=== PATIENT | male | born 1930 | race Caucasian/White ===

== ENCOUNTER 2016-09-21 11:36 | Inpatient (IN) | payer OTHER, MEDICAID ==
[~2016-09-21] VITALS: Ht 157.5 cm; Wt 63.0 kg
[~2016-09-21 11:36] MED LIST: FURO-150 PO; LISI-600 PO; PARI1CAP PO; PIOG15TA66 PO; SITA100T7 PO
[2016-09-21 13:42] VITALS: BP_SYST 139
[2016-09-21] MEDS ORDERED: MORPHINE 2 MG/ML INJ. SYRINGE IVP PRN (14:30)
[2016-09-21] MEDS ORDERED: ONDANSETRON HCL 4 MG/2 ML VIAL IVP PRN (14:30)
[2016-09-21] MEDS ORDERED: ACETAMINOPHEN 325 MG TABLET PO PRN (14:30)
[2016-09-21 14:44] LABS: BASOPHILS % (AUTO) 0.5 % (0.0-2.0); EOSINOPHILS # (AUTO) 0.1 K/uL (0.0-0.4); EOSINOPHILS % (AUTO) 0.8 % (0.0-4.0); HEMATOCRIT 35.9 % (36-54); HEMOGLOBIN 11.6 g/dL (14.0-18.0); LYMPHOCYTES # (AUTO) 0.8 K/uL (1.0-5.5); LYMPHOCYTES % (AUTO) 10.6 % (20.5-51.5); MEAN CORPUSCULAR HEMOGLOBIN 28 pg (27-31); MEAN CORPUSCULAR HGB CONC 32 % (32-36); MEAN CORPUSCULAR VOLUME 88 fL (79.0-98.0); MONOCYTES # (AUTO) 0.7 K/uL (0.0-1.0); MONOCYTES % (AUTO) 9.9 % (1.7-9.3); NEUTROPHILS # (AUTO) 5.9 K/uL (1.8-7.7); NEUTROPHILS % (AUTO) 78.2 % (40.0-70.0); PLATELET COUNT (AUTO) 257 K/uL (130-430); RED BLOOD CELL COUNT(AUTO) 4.08 MIL/uL (4.2-6.2); RED CELL DISTRIBUTION WIDTH 17.4 % (9.0-15.0); WHITE BLOOD COUNT (AUTO) 7.5 K/uL (4.8-10.8)
[2016-09-21 15:07] LABS: ANION GAP 7 (5-15); CHLORIDE 99 mmol/L (98-107); CREATININE 1.82 mg/dL (0.55-1.30); GLUCOSE 230 mg/dL (70-99); POTASSIUM 4.1 mmol/L (3.5-5.1); SODIUM SERUM 130 mmol/L (136-145); UREA NITROGEN, BLOOD 26 mg/dL (8-21)
[2016-09-21] MEDS ORDERED: CYAN100020 SL (15:10)
[2016-09-21] MEDS ORDERED: LOSA25TA11 PO (15:10)
[2016-09-21] MEDS ORDERED: METO100T3 PO (15:10)
[2016-09-21] MEDS ORDERED: REPA1TAB7 PO (15:10)
[2016-09-21] MEDS ORDERED: ASPI-1063 PO (15:10)
[2016-09-21 15:11] LABS: ALANINE AMINOTRANSFERASE 225 U/L (12-78); ALBUMIN 2.6 g/dL (3.4-4.8); ASPARTATE AMINOTRANSFERASE 164 U/L (10-37); TOTAL BILIRUBIN 10.2 mg/dL (0.0-1.0); TOTAL PROTEIN, SERUM 6.4 g/dL (6.4-8.3)
[2016-09-21] MEDS ORDERED: DIATR MEGLU/DIATRIZ SOD 30 ML SOLUTION PO ONE (15:43)
[2016-09-21] MEDS: D5NS 1,000 ML IV SCH (16:09)
[2016-09-21] MEDS: metroNIDAZOLE 500 mg/NS 100 ML IV SCH ×2 (16:10→21:18)
[2016-09-21 16:13] VITALS: BP_SYST 141
[2016-09-21] MEDS ORDERED: LEVOFLOXACIN 500 MG/D5W 100 ML IV SCH (18:00)
[2016-09-21 19:00] VITALS: BP_SYST 148
[2016-09-21 20:00] VITALS: BP_SYST 148
[2016-09-21] MEDS ORDERED: AMOX-423 PO (20:22)
[2016-09-22 01:43] VITALS: BP_SYST 121
[2016-09-22 04:00] VITALS: BP_SYST 131
[2016-09-22] MEDS: metroNIDAZOLE 500 mg/NS 100 ML IV SCH ×3 (05:09→21:30)
[2016-09-22] MEDS: D5NS 1,000 ML IV SCH ×3 (05:20→21:29)
[2016-09-22 08:00] VITALS: BP_SYST 147
[2016-09-22] MEDS: FUROSEMIDE 20 MG TABLET PO SCH (09:14)
[2016-09-22] MEDS: LISINOPRIL 20 MG TABLET PO SCH (09:15)
[2016-09-22 09:20] LABS: BLOOD, URINE NEGATIVE (NEGATIVE); CLARITY/URINE CLEAR (CLEAR); COLOR,URINE YELLOW (YELLOW); GLUCOSE,URINE NEGATIVE (NEGATIVE); KETONES,URINE NEGATIVE (NEGATIVE); LEUKOCYTE ESTERASE ,URINE NEGATIVE (NEGATIVE); NITRITE, URINE NEGATIVE (NEGATIVE); PH,URINE 5.5 (5.0-8.0); PROTEIN URINE NEGATIVE (NEGATIVE); UROBILINOGEN,URINE 0.2 (0.2-1.0)
[2016-09-22 09:25] LABS: BILIRUBIN,URINE 3+ (NEGATIVE)
[2016-09-22 09:29] LABS: BACTERIA,URINE FEW /HPF (None Seen); RBC,URINE 0-3 /HPF (0-3); WBC,URINE 0-3 /HPF (0-3)
[2016-09-22 12:36] VITALS: BP_SYST 130
[2016-09-22 16:54] VITALS: BP_SYST 125
[2016-09-22] MEDS: LEVOFLOXACIN 250 MG/D5W 50 ML IV SCH (17:33)
[2016-09-22 19:45] VITALS: BP_SYST 138
[2016-09-23 00:23] VITALS: BP_SYST 137
[2016-09-23 03:20] VITALS: BP_SYST 134
[2016-09-23 06:19] LABS: BASOPHILS % (AUTO) 0.3 % (0.0-2.0); EOSINOPHILS # (AUTO) 0.1 K/uL (0.0-0.4); HEMATOCRIT 32.6 % (36-54); LYMPHOCYTES # (AUTO) 0.7 K/uL (1.0-5.5); LYMPHOCYTES % (AUTO) 9.4 % (20.5-51.5); MEAN CORPUSCULAR HEMOGLOBIN 29 pg (27-31); MEAN CORPUSCULAR HGB CONC 34 % (32-36); MEAN CORPUSCULAR VOLUME 87 fL (79.0-98.0); MONOCYTES # (AUTO) 0.9 K/uL (0.0-1.0); NEUTROPHILS # (AUTO) 6.2 K/uL (1.8-7.7); NEUTROPHILS % (AUTO) 77.3 % (40.0-70.0); PLATELET COUNT (AUTO) 265 K/uL (130-430); RED BLOOD CELL COUNT(AUTO) 3.76 MIL/uL (4.2-6.2); RED CELL DISTRIBUTION WIDTH 17.2 % (9.0-15.0); WHITE BLOOD COUNT (AUTO) 7.9 K/uL (4.8-10.8)
[2016-09-23] MEDS: metroNIDAZOLE 500 mg/NS 100 ML IV SCH ×3 (06:34→21:45)
[2016-09-23] MEDS: D5NS 1,000 ML IV SCH ×2 (06:37→15:20)
[2016-09-23 06:43] LABS: ALANINE AMINOTRANSFERASE 213 U/L (12-78); ALBUMIN 2.2 g/dL (3.4-4.8); ANION GAP 6 (5-15); ASPARTATE AMINOTRANSFERASE 141 U/L (10-37); CALCIUM 7.6 mg/dL (8.4-11.0); CHLORIDE 104 mmol/L (98-107); CREATININE 1.34 mg/dL (0.55-1.30); GLUCOSE 152 mg/dL (70-99); LIPASE 446 U/L (73-393); POTASSIUM 3.4 mmol/L (3.5-5.1); SODIUM SERUM 134 mmol/L (136-145); TOTAL BILIRUBIN 11.3 mg/dL (0.0-1.0); TOTAL PROTEIN, SERUM 5.7 g/dL (6.4-8.3); UREA NITROGEN, BLOOD 11 mg/dL (8-21)
[2016-09-23 12:00] VITALS: BP_SYST 139
[2016-09-23 13:13] LABS: HEPATITIS A AB, IgM Negative (Negative); HEPATITIS B CORE AB, IgM Negative (Negative); HEPATITIS B SURFACE AG Negative (Negative)
[2016-09-23 15:43] LABS: INR 1.1 (0.80-1.20)
[2016-09-23 16:25] VITALS: BP_SYST 151
[2016-09-23] MEDS: LISINOPRIL 20 MG TABLET PO SCH (16:43)
[2016-09-23] MEDS: FUROSEMIDE 20 MG TABLET PO SCH (16:43)
[2016-09-23] MEDS: LEVOFLOXACIN 250 MG/D5W 50 ML IV SCH (19:13)
[2016-09-23 19:51] VITALS: BP_SYST 140
[2016-09-23 21:25] LABS: BILIRUBIN,URINE 2+ (NEGATIVE); BLOOD, URINE NEGATIVE (NEGATIVE); CLARITY/URINE CLEAR (CLEAR); COLOR,URINE YELLOW (YELLOW); GLUCOSE,URINE 2+ (NEGATIVE); KETONES,URINE NEGATIVE (NEGATIVE); LEUKOCYTE ESTERASE ,URINE NEGATIVE (NEGATIVE); NITRITE, URINE NEGATIVE (NEGATIVE); PROTEIN URINE NEGATIVE (NEGATIVE); UROBILINOGEN,URINE 0.2 (0.2-1.0)
[2016-09-23 21:34] LABS: BACTERIA,URINE FEW /HPF (None Seen); MUCUS,URINE None Seen /LPF (None Seen); RBC,URINE 0-3 /HPF (0-3); WBC,URINE 0-3 /HPF (0-3)
[2016-09-24] VITALS (7 sets, daily range): BP systolic 130–150
[2016-09-24] MEDS: D5NS 1,000 ML IV SCH ×3 (02:12→21:20)
[2016-09-24] MEDS: metroNIDAZOLE 500 mg/NS 100 ML IV SCH ×3 (05:32→21:20)
[2016-09-24] MEDS ORDERED: SUCCINYLCHOLINE CHLORIDE 20 MG/ML(QUELICIN) IVP ONE (07:31)
[2016-09-24] MEDS ORDERED: NS 1000 ML BAG IV ONE (07:31)
[2016-09-24] MEDS ORDERED: PROPOFOL 200MG/ 20ML VIAL (DIPRIVAN) IV ONE (07:31)
[2016-09-24] MEDS ORDERED: NS IRRIG SOLN 1000 ML IR ONE (07:31)
[2016-09-24] MEDS ORDERED: SEVOFLURANE 15 MIN GAS INH ONE (07:31)
[2016-09-24] MEDS ORDERED: MIDAZOLAM HCL 5 MG/5 ML VIAL IVP ONE (07:31)
[2016-09-24] MEDS ORDERED: ONDANSETRON HCL 4 MG/2 ML VIAL IVP ONE (07:31)
[2016-09-24] MEDS ORDERED: IOHEXOL 0 ML IV ONE (08:03)
[2016-09-24] MEDS ORDERED: ONDANSETRON HCL 4 MG/2 ML VIAL IVP PRN (08:15)
[2016-09-24] MEDS ORDERED: HYDROmorphone 1 MG INJ. 1 MG/ML AMPUL IVP PRN (08:15)
[2016-09-24] MEDS ORDERED: LR 1,000 ML IV SCH (08:15)
[2016-09-24] MEDS ORDERED: MEPERIDINE HCL/PF 25 MG/ML DISP.SYRIN IVP PRN (08:15)
[2016-09-24 08:21] LABS: HEMATOCRIT 33.6 % (36-54); HEMOGLOBIN 11.6 g/dL (14.0-18.0); MEAN CORPUSCULAR VOLUME 86 fL (79.0-98.0); RED BLOOD CELL COUNT(AUTO) 3.89 MIL/uL (4.2-6.2); WHITE BLOOD COUNT (AUTO) 9.8 K/uL (4.8-10.8)
[2016-09-24 08:22] LABS: BASOPHILS % (AUTO) 0.2 % (0.0-2.0); EOSINOPHILS % (AUTO) 0.3 % (0.0-4.0); LYMPHOCYTES % (AUTO) 9.8 % (20.5-51.5); MEAN CORPUSCULAR HEMOGLOBIN 30 pg (27-31); MEAN CORPUSCULAR HGB CONC 35 % (32-36); MONOCYTES # (AUTO) 1.1 K/uL (0.0-1.0); MONOCYTES % (AUTO) 10.7 % (1.7-9.3); NEUTROPHILS # (AUTO) 7.7 K/uL (1.8-7.7); PLATELET COUNT (AUTO) 268 K/uL (130-430); RED CELL DISTRIBUTION WIDTH 17.4 % (9.0-15.0)
[2016-09-24 08:24] LABS: ALANINE AMINOTRANSFERASE 184 U/L (12-78); ALBUMIN 2.4 g/dL (3.4-4.8); ANION GAP 9 (5-15); ASPARTATE AMINOTRANSFERASE 127 U/L (10-37); CALCIUM 7.9 mg/dL (8.4-11.0); CHLORIDE 100 mmol/L (98-107); CREATININE 1.25 mg/dL (0.55-1.30); GLUCOSE 168 mg/dL (70-99); POTASSIUM 3.5 mmol/L (3.5-5.1); SODIUM SERUM 133 mmol/L (136-145); TOTAL BILIRUBIN 13.3 mg/dL (0.0-1.0); TOTAL PROTEIN, SERUM 6.1 g/dL (6.4-8.3); UREA NITROGEN, BLOOD 7 mg/dL (8-21)
[2016-09-24 08:36] LABS: INR 1.1 (0.80-1.20); PROTHROMBIN TIME 12.1 SECS (9.5-12.5)
[2016-09-24] MEDS: LISINOPRIL 20 MG TABLET PO SCH (10:41)
[2016-09-24] MEDS: FUROSEMIDE 20 MG TABLET PO SCH (10:41)
[2016-09-24] MEDS: LEVOFLOXACIN 250 MG/D5W 50 ML IV SCH (17:32)
[2016-09-25] VITALS (9 sets, daily range): BP systolic 127–153
[2016-09-25] MEDS: metroNIDAZOLE 500 mg/NS 100 ML IV SCH ×3 (05:32→21:24)
[2016-09-25 07:55] LABS: ALBUMIN 2.1 g/dL (3.4-4.8); BILIRUBIN,DIRECT 9.7 mg/dL (0.0-0.3); TOTAL BILIRUBIN 11.8 mg/dL (0.0-1.0); TOTAL PROTEIN, SERUM 5.6 g/dL (6.4-8.3)
[2016-09-25] MEDS: FUROSEMIDE 20 MG TABLET PO SCH (08:33)
[2016-09-25] MEDS: LISINOPRIL 20 MG TABLET PO SCH (08:34)
[2016-09-25] MEDS: D5NS 1,000 ML IV SCH ×2 (08:40→20:16)
[2016-09-25] MEDS: LEVOFLOXACIN 250 MG/D5W 50 ML IV SCH (17:27)
== END 2016-09-25 23:58 | disposition short-term general hospital (02) | DRG 435 ==
LOC: SMU 13:17
PROVIDERS: ADMIT Internal Medicine Hospice and Palliative Medicine; ATTEND Internal Medicine Hospice and Palliative Medicine
DX: C25.9 Malignant neoplasm of pancreas, unspecified (principal); E43 Unspecified severe protein-calorie malnutrition; N17.9 Acute kidney failure, unspecified; R17 Unspecified jaundice; C24.9 Malignant neoplasm of biliary tract, unspecified; I12.9 Hypertensive chronic kidney disease with stage 1 through stage 4 chronic kidney disease, or unspecified chronic kidney disease; E11.22 Type 2 diabetes mellitus with diabetic chronic kidney disease; E11.65 Type 2 diabetes mellitus with hyperglycemia; R74.0 Nonspecific elevation of levels of transaminase and lactic acid dehydrogenase [LDH]; N18.3 Chronic kidney disease, stage 3 (moderate); Z98.49 Cataract extraction status, unspecified eye; Z87.891 Personal history of nicotine dependence; Z79.84 Long term (current) use of oral hypoglycemic drugs; Z83.3 Family history of diabetes mellitus
CPT/HCPCS: 36415; 71010; 76700-TC; 80053; 80074; 80076; 81000-TC; 83690-TC; 85025; 85610-TC; 85730-TC; 86301; 87081; 93005; 94010; J0330; J1956; J2250; J2405; J2704; J3490; J7030; J7042; Q9964; Q9967

== ENCOUNTER 2016-10-18 22:24 | Inpatient (IN) | payer OTHER, MEDICAID ==
[~2016-10-18] VITALS: Ht 157.5 cm; Wt 63.0 kg
[~2016-10-18 22:24] MED LIST changes: +ASPI-1063 PO; +CYAN100020 SL; +LOSA25TA11 PO; +METO100T3 PO; +REPA1TAB7 PO
[2016-10-18 22:37] VITALS: BP_SYST 142
[2016-10-18] MEDS ORDERED: NACL 0.9% 1,000 ML IV ONE (22:45)
[2016-10-18] MEDS ORDERED: ALBUTEROL SULFATE 0.083% 2.5 MG/3 ML VIAL.NEB IH ONE (23:00)
[2016-10-18] MEDS ORDERED: ASPIRIN 81 MG TAB.CHEW PO ONE (23:00)
[2016-10-18] MEDS ORDERED: IPRATROPIUM BROM 0.5 MG/2.5 ML VIAL.NEB (ATROVENT) IH ONE (23:00)
[2016-10-18 23:10] LABS: BASOPHILS # (AUTO) 0.2 K/uL (0.0-0.2); BASOPHILS % (AUTO) 1.6 % (0.0-2.0); EOSINOPHILS % (AUTO) 0.3 % (0.0-4.0); HEMATOCRIT 30.9 % (36-54); HEMOGLOBIN 10.5 g/dL (14.0-18.0); LYMPHOCYTES # (AUTO) 0.7 K/uL (1.0-5.5); LYMPHOCYTES % (AUTO) 4.9 % (20.5-51.5); MEAN CORPUSCULAR HEMOGLOBIN 32 pg (27-31); MEAN CORPUSCULAR HGB CONC 34 % (32-36); MEAN CORPUSCULAR VOLUME 93 fL (79.0-98.0); MONOCYTES % (AUTO) 7.7 % (1.7-9.3); NEUTROPHILS # (AUTO) 11.7 K/uL (1.8-7.7); NEUTROPHILS % (AUTO) 85.5 % (40.0-70.0); PLATELET COUNT (AUTO) 231 K/uL (130-430); RED BLOOD CELL COUNT(AUTO) 3.33 MIL/uL (4.2-6.2); RED CELL DISTRIBUTION WIDTH 17.1 % (9.0-15.0); WHITE BLOOD COUNT (AUTO) 13.6 K/uL (4.8-10.8)
[2016-10-18 23:22] LABS: ANION GAP 7 (5-15); CALCIUM 8.1 mg/dL (8.4-11.0); CHLORIDE 100 mmol/L (98-107); CREATININE 1.26 mg/dL (0.55-1.30); GLUCOSE 112 mg/dL (70-99); POTASSIUM 4.1 mmol/L (3.5-5.1); SODIUM SERUM 134 mmol/L (136-145); UREA NITROGEN, BLOOD 29 mg/dL (8-21)
[2016-10-18 23:27] LABS: ALANINE AMINOTRANSFERASE 82 U/L (12-78); ALBUMIN 2.4 g/dL (3.4-4.8); AMYLASE 345 U/L (0-100); ASPARTATE AMINOTRANSFERASE 103 U/L (10-37); CREATINE KINASE, TOTAL 42 U/L (39-308); TOTAL BILIRUBIN 3.7 mg/dL (0.0-1.0); TOTAL PROTEIN, SERUM 6.6 g/dL (6.4-8.3)
[2016-10-18 23:34] LABS: ABG TOTAL HEMOGLOBIN 11.5 G/dL (12.0-18.0); BLOOD GAS BASE EXCESS 1.7 mmol/L (-3.0-3.0); BLOOD GAS COHb% 0.5 % (0.5-1.5); BLOOD GAS HHB 7.2 % (0.0-6.0); BLOOD GAS PH 7.451 (7.350-7.450)
[2016-10-19] MEDS ORDERED: LOVA20TA2 PO (00:52)
[2016-10-19] MEDS ORDERED: SITA100T7 PO (00:52)
[2016-10-19] MEDS ORDERED: cefTRIAXone 2 GM VIAL ONE (02:22)
[2016-10-19 04:26] VITALS: BP_SYST 119
[2016-10-19] MEDS: FUROSEMIDE 40 MG/4 ML VIAL IVP SCH ×3 (07:30→21:39)
[2016-10-19] MEDS: D5/0.45 NS 1,000 ML IV SCH (07:36)
[2016-10-19 08:02] LABS: BASOPHILS % (AUTO) 0.1 % (0.0-2.0); EOSINOPHILS % (AUTO) 0.3 % (0.0-4.0); HEMATOCRIT 27.8 % (36-54); HEMOGLOBIN 9.3 g/dL (14.0-18.0); LYMPHOCYTES % (AUTO) 10.2 % (20.5-51.5); MEAN CORPUSCULAR HEMOGLOBIN 32 pg (27-31); MEAN CORPUSCULAR HGB CONC 34 % (32-36); MEAN CORPUSCULAR VOLUME 94 fL (79.0-98.0); MONOCYTES # (AUTO) 0.9 K/uL (0.0-1.0); MONOCYTES % (AUTO) 8.3 % (1.7-9.3); NEUTROPHILS # (AUTO) 8.4 K/uL (1.8-7.7); NEUTROPHILS % (AUTO) 81.1 % (40.0-70.0); PLATELET COUNT (AUTO) 228 K/uL (130-430); RED BLOOD CELL COUNT(AUTO) 2.96 MIL/uL (4.2-6.2); RED CELL DISTRIBUTION WIDTH 17.5 % (9.0-15.0); WHITE BLOOD COUNT (AUTO) 10.3 K/uL (4.8-10.8)
[2016-10-19 08:11] LABS: ANION GAP 10 (5-15); CALCIUM 7.6 mg/dL (8.4-11.0); CHLORIDE 103 mmol/L (98-107); CREATININE 1.27 mg/dL (0.55-1.30); GLUCOSE 103 mg/dL (70-99); PHOSPHORUS 3.6 mg/dL (2.7-4.5); POTASSIUM 3.9 mmol/L (3.5-5.1); SODIUM SERUM 138 mmol/L (136-145); UREA NITROGEN, BLOOD 28 mg/dL (8-21)
[2016-10-19 08:20] VITALS: BP_SYST 150
[2016-10-19] MEDS: LISINOPRIL 20 MG TABLET PO SCH (08:41)
[2016-10-19] MEDS: REPAGLINIDE 1 MG TABLET (PRANDIN) PO SCH ×3 (08:41→21:06)
[2016-10-19] MEDS: METOPROLOL TARTRATE 50 MG TABLET PO SCH ×2 (08:44→21:06)
[2016-10-19] MEDS: ASPIRIN 81 MG TABLET(ECOTRIN) PO SCH (08:44)
[2016-10-19] MEDS: AZITHROMYCIN 500 MG in NS 250 ML IV SCH (08:45)
[2016-10-19 08:47] LABS: ABG TOTAL HEMOGLOBIN 10.3 G/dL (12.0-18.0); BLOOD GAS BASE EXCESS -0.7 mmol/L (-3.0-3.0); BLOOD GAS COHb% 0.3 % (0.5-1.5); BLOOD GAS HHB 5.5 % (0.0-6.0); BLOOD GAS PH 7.424 (7.350-7.450)
[2016-10-19] MEDS ORDERED: NON-FORMULARY MEDICATION (Paricalcitol (Zemplar) 1 MCG) PO SCH (09:00)
[2016-10-19] MEDS ORDERED: ALBUTEROL SULFATE 0.083% 2.5 MG/3 ML VIAL.NEB INH PRN (10:45)
[2016-10-19] MEDS ORDERED: IPRATROPIUM BROM 0.5 MG/2.5 ML VIAL.NEB (ATROVENT) INH PRN (10:45)
[2016-10-19 10:59] VITALS: BP_SYST 150
[2016-10-19] MEDS: PIPERACILLIN/TAZO 3.375/DEX-IS 50 ML IV SCH ×2 (12:44→17:32)
[2016-10-19] MEDS: INSULIN REGULAR, HUMAN 100 UNITS/ML, 10 ML VIAL (novoLIN R) SUBCUT PRN (12:50)
[2016-10-19] MEDS: IPRATROPIUM BROM 0.5 MG/2.5 ML VIAL.NEB (ATROVENT) INH SCH ×2 (13:00→20:02)
[2016-10-19] MEDS: ALBUTEROL SULFATE 0.083% 2.5 MG/3 ML VIAL.NEB INH SCH ×2 (13:00→20:02)
[2016-10-19 13:07] VITALS: BP_SYST 136
[2016-10-19] MEDS: SIMVASTATIN 10 MG TABLET PO SCH (17:34)
[2016-10-19 18:23] VITALS: BP_SYST 143
[2016-10-19 19:30] VITALS: BP_SYST 141
[2016-10-19 23:00] LABS: BILIRUBIN,URINE NEGATIVE (NEGATIVE); CLARITY/URINE CLEAR (CLEAR); COLOR,URINE YELLOW (YELLOW); GLUCOSE,URINE NEGATIVE (NEGATIVE); KETONES,URINE NEGATIVE (NEGATIVE); PROTEIN URINE NEGATIVE (NEGATIVE)
[2016-10-19 23:01] LABS: BLOOD, URINE 2+ (NEGATIVE); LEUKOCYTE ESTERASE ,URINE NEGATIVE (NEGATIVE); NITRITE, URINE NEGATIVE (NEGATIVE); UROBILINOGEN,URINE 0.2 (0.2-1.0)
[2016-10-19 23:05] LABS: BACTERIA,URINE FEW /HPF (None Seen); MUCUS,URINE 1+ /LPF (None Seen)
[2016-10-20] VITALS (7 sets, daily range): BP systolic 111–139
[2016-10-20] MEDS: D5/0.45 NS 1,000 ML IV SCH ×2 (00:20→11:58)
[2016-10-20] MEDS: PIPERACILLIN/TAZO 3.375/DEX-IS 50 ML IV SCH ×4 (00:33→17:37)
[2016-10-20] MEDS: ALBUTEROL SULFATE 0.083% 2.5 MG/3 ML VIAL.NEB INH SCH ×4 (01:00→20:51)
[2016-10-20] MEDS: IPRATROPIUM BROM 0.5 MG/2.5 ML VIAL.NEB (ATROVENT) INH SCH ×4 (01:30→20:52)
[2016-10-20 06:39] LABS: BASOPHILS % (AUTO) 0.3 % (0.0-2.0); EOSINOPHILS % (AUTO) 0.4 % (0.0-4.0); HEMATOCRIT 30.5 % (36-54); HEMOGLOBIN 10.3 g/dL (14.0-18.0); LYMPHOCYTES # (AUTO) 0.5 K/uL (1.0-5.5); MEAN CORPUSCULAR HEMOGLOBIN 31 pg (27-31); MEAN CORPUSCULAR HGB CONC 34 % (32-36); MEAN CORPUSCULAR VOLUME 93 fL (79.0-98.0); MONOCYTES # (AUTO) 0.9 K/uL (0.0-1.0); MONOCYTES % (AUTO) 8.3 % (1.7-9.3); NEUTROPHILS # (AUTO) 9.2 K/uL (1.8-7.7); PLATELET COUNT (AUTO) 256 K/uL (130-430); RED BLOOD CELL COUNT(AUTO) 3.29 MIL/uL (4.2-6.2); RED CELL DISTRIBUTION WIDTH 16.3 % (9.0-15.0); WHITE BLOOD COUNT (AUTO) 10.6 K/uL (4.8-10.8)
[2016-10-20 06:47] LABS: ALANINE AMINOTRANSFERASE 85 U/L (12-78); ANION GAP 5 (5-15); ASPARTATE AMINOTRANSFERASE 142 U/L (10-37); CALCIUM 7.6 mg/dL (8.4-11.0); CHLORIDE 100 mmol/L (98-107); CREATININE 1.36 mg/dL (0.55-1.30); GLUCOSE 181 mg/dL (70-99); POTASSIUM 3.2 mmol/L (3.5-5.1); SODIUM SERUM 137 mmol/L (136-145); TOTAL BILIRUBIN 3.2 mg/dL (0.0-1.0); UREA NITROGEN, BLOOD 19 mg/dL (8-21)
[2016-10-20] MEDS: METOPROLOL TARTRATE 50 MG TABLET PO SCH ×2 (08:45→21:07)
[2016-10-20] MEDS: FUROSEMIDE 40 MG/4 ML VIAL IVP SCH ×2 (08:45→22:37)
[2016-10-20] MEDS: PARICALCITOL 1 MCG PO SCH (08:46)
[2016-10-20] MEDS: AZITHROMYCIN 500 MG in NS 250 ML IV SCH (08:46)
[2016-10-20] MEDS: ASPIRIN 81 MG TABLET(ECOTRIN) PO SCH (08:46)
[2016-10-20] MEDS: LISINOPRIL 20 MG TABLET PO SCH (08:46)
[2016-10-20] MEDS: REPAGLINIDE 1 MG TABLET (PRANDIN) PO SCH ×2 (08:47→21:06)
[2016-10-20] MEDS: INSULIN REGULAR, HUMAN 100 UNITS/ML, 10 ML VIAL (novoLIN R) SUBCUT PRN ×2 (12:03→21:08)
[2016-10-20] MEDS ORDERED: BARIUM SULFATE 135 ML SUSP.RECON (E-Z-HD) PO ONE (14:08)
[2016-10-20] MEDS: SIMVASTATIN 10 MG TABLET PO SCH (17:47)
[2016-10-20] MEDS ORDERED: POTASSIUM CHLORIDE 20 MEQ TAB.PRT.SR PO ONE (20:15)
[2016-10-21] MEDS: PIPERACILLIN/TAZO 3.375/DEX-IS 50 ML IV SCH ×6 (01:15→23:37)
[2016-10-21] MEDS: ALBUTEROL SULFATE 0.083% 2.5 MG/3 ML VIAL.NEB INH SCH ×5 (03:00→23:55)
[2016-10-21] MEDS: IPRATROPIUM BROM 0.5 MG/2.5 ML VIAL.NEB (ATROVENT) INH SCH ×5 (03:01→23:55)
[2016-10-21 04:00] VITALS: BP_SYST 114
[2016-10-21] MEDS: D5/0.45 NS 1,000 ML IV SCH ×3 (04:37→16:31)
[2016-10-21 06:29] LABS: BASOPHILS % (AUTO) 0.3 % (0.0-2.0); EOSINOPHILS % (AUTO) 0.3 % (0.0-4.0); HEMATOCRIT 29.1 % (36-54); HEMOGLOBIN 9.7 g/dL (14.0-18.0); LYMPHOCYTES # (AUTO) 0.6 K/uL (1.0-5.5); LYMPHOCYTES % (AUTO) 5.6 % (20.5-51.5); MEAN CORPUSCULAR HEMOGLOBIN 31 pg (27-31); MEAN CORPUSCULAR HGB CONC 34 % (32-36); MEAN CORPUSCULAR VOLUME 93 fL (79.0-98.0); MONOCYTES % (AUTO) 8.9 % (1.7-9.3); NEUTROPHILS # (AUTO) 9.5 K/uL (1.8-7.7); NEUTROPHILS % (AUTO) 84.9 % (40.0-70.0); PLATELET COUNT (AUTO) 249 K/uL (130-430); RED BLOOD CELL COUNT(AUTO) 3.14 MIL/uL (4.2-6.2); RED CELL DISTRIBUTION WIDTH 16.9 % (9.0-15.0); WHITE BLOOD COUNT (AUTO) 11.1 K/uL (4.8-10.8)
[2016-10-21 07:30] LABS: SODIUM SERUM 137 mmol/L (136-145)
[2016-10-21 07:31] LABS: ALANINE AMINOTRANSFERASE 186 U/L (12-78); CALCIUM 7.6 mg/dL (8.4-11.0); CHLORIDE 98 mmol/L (98-107); CREATININE 1.43 mg/dL (0.55-1.30); GLUCOSE 164 mg/dL (70-99); TOTAL BILIRUBIN 4.8 mg/dL (0.0-1.0); UREA NITROGEN, BLOOD 15 mg/dL (8-21)
[2016-10-21 07:32] LABS: ASPARTATE AMINOTRANSFERASE 385 U/L (10-37); TOTAL PROTEIN, SERUM 5.8 g/dL (6.4-8.3)
[2016-10-21 07:37] LABS: ANION GAP 6 (5-15); POTASSIUM 2.9 mmol/L (3.5-5.1)
[2016-10-21] MEDS ORDERED: POTASSIUM CHLORIDE 20 MEQ TAB.PRT.SR PO ONE ×2 (08:45)
[2016-10-21] MEDS: PARICALCITOL 1 MCG PO SCH (09:00)
[2016-10-21] MEDS ORDERED: HYOSCYAMINE SULFATE 0.125 MG TABLET PO PRN (09:00)
[2016-10-21] MEDS: AZITHROMYCIN 500 MG in NS 250 ML IV SCH (09:26)
[2016-10-21] MEDS: FUROSEMIDE 40 MG/4 ML VIAL IVP SCH ×2 (09:37→21:10)
[2016-10-21] MEDS: ASPIRIN 81 MG TABLET(ECOTRIN) PO SCH (09:37)
[2016-10-21] MEDS: REPAGLINIDE 1 MG TABLET (PRANDIN) PO SCH ×2 (09:37→21:11)
[2016-10-21] MEDS: METOPROLOL TARTRATE 50 MG TABLET PO SCH ×2 (09:38→21:11)
[2016-10-21] MEDS ORDERED: POTASSIUM CHLORIDE 20 MEQ TAB.PRT.SR ONE (09:45)
[2016-10-21] MEDS: LISINOPRIL 20 MG TABLET PO SCH (10:06)
[2016-10-21 12:44] VITALS: BP_SYST 137
[2016-10-21] MEDS ORDERED: POTASSIUM CHLORIDE 20 MEQ TAB.PRT.SR PO SCH (13:00)
[2016-10-21] MEDS ORDERED: POTASSIUM CHLORIDE 40 MEQ in NS 250 ML IV ONE (13:45)
[2016-10-21 17:44] VITALS: BP_SYST 146
[2016-10-21] MEDS: SIMVASTATIN 10 MG TABLET PO SCH (18:00)
[2016-10-21 21:01] VITALS: BP_SYST 126
[2016-10-22] VITALS (7 sets, daily range): BP systolic 106–134
[2016-10-22] MEDS: D5/0.45 NS 1,000 ML IV SCH (01:25)
[2016-10-22] MEDS: PIPERACILLIN/TAZO 3.375/DEX-IS 50 ML IV SCH ×4 (05:26→23:22)
[2016-10-22] MEDS: INSULIN REGULAR, HUMAN 100 UNITS/ML, 10 ML VIAL (novoLIN R) SUBCUT PRN ×3 (06:54→21:43)
[2016-10-22] MEDS: ALBUTEROL SULFATE 0.083% 2.5 MG/3 ML VIAL.NEB INH SCH ×3 (07:20→20:01)
[2016-10-22] MEDS: IPRATROPIUM BROM 0.5 MG/2.5 ML VIAL.NEB (ATROVENT) INH SCH ×3 (07:21→20:01)
[2016-10-22 07:39] LABS: ANION GAP 6 (5-15); CALCIUM 7.4 mg/dL (8.4-11.0); CHLORIDE 100 mmol/L (98-107); CREATININE 1.57 mg/dL (0.55-1.30); GLUCOSE 165 mg/dL (70-99); POTASSIUM 3.4 mmol/L (3.5-5.1); SODIUM SERUM 137 mmol/L (136-145); UREA NITROGEN, BLOOD 13 mg/dL (8-21)
[2016-10-22] MEDS: PARICALCITOL 1 MCG PO SCH (09:00)
[2016-10-22] MEDS: REPAGLINIDE 1 MG TABLET (PRANDIN) PO SCH ×2 (09:08→20:55)
[2016-10-22] MEDS: LISINOPRIL 20 MG TABLET PO SCH (09:09)
[2016-10-22] MEDS: FUROSEMIDE 40 MG/4 ML VIAL IVP SCH ×2 (09:10→20:54)
[2016-10-22] MEDS: ASPIRIN 81 MG TABLET(ECOTRIN) PO SCH (09:10)
[2016-10-22] MEDS: METOPROLOL TARTRATE 50 MG TABLET PO SCH ×2 (09:10→20:55)
[2016-10-22] MEDS: AZITHROMYCIN 500 MG in NS 250 ML IV SCH (09:11)
[2016-10-22] MEDS ORDERED: KCL 20 mEq in 100 mL (PREMIX) 200 ML IV ONE (10:45)
[2016-10-22] MEDS: 0.45% NACL 1,000 ML IV SCH (14:59)
[2016-10-22] MEDS: SIMVASTATIN 10 MG TABLET PO SCH (17:47)
[2016-10-23] MEDS: IPRATROPIUM BROM 0.5 MG/2.5 ML VIAL.NEB (ATROVENT) INH SCH ×3 (02:30→19:36)
[2016-10-23] MEDS: ALBUTEROL SULFATE 0.083% 2.5 MG/3 ML VIAL.NEB INH SCH ×3 (02:30→19:36)
[2016-10-23 03:31] VITALS: BP_SYST 116
[2016-10-23] MEDS: PIPERACILLIN/TAZO 3.375/DEX-IS 50 ML IV SCH ×3 (06:00→17:11)
[2016-10-23] MEDS: INSULIN REGULAR, HUMAN 100 UNITS/ML, 10 ML VIAL (novoLIN R) SUBCUT PRN ×2 (06:09→20:31)
[2016-10-23 07:45] VITALS: BP_SYST 115
[2016-10-23] MEDS: FUROSEMIDE 40 MG/4 ML VIAL IVP SCH ×2 (08:45→20:31)
[2016-10-23] MEDS: METOPROLOL TARTRATE 50 MG TABLET PO SCH ×2 (08:46→20:31)
[2016-10-23] MEDS: REPAGLINIDE 1 MG TABLET (PRANDIN) PO SCH ×2 (08:47→20:31)
[2016-10-23] MEDS: ASPIRIN 81 MG TABLET(ECOTRIN) PO SCH (08:47)
[2016-10-23] MEDS: LISINOPRIL 20 MG TABLET PO SCH (08:47)
[2016-10-23] MEDS: AZITHROMYCIN 500 MG in NS 250 ML IV SCH (08:50)
[2016-10-23 08:51] LABS: HEMOGLOBIN 10.4 g/dL (14.0-18.0); MEAN CORPUSCULAR HEMOGLOBIN 32 pg (27-31)
[2016-10-23 09:09] LABS: BASOPHILS % (AUTO) 0.2 % (0.0-2.0); EOSINOPHILS % (AUTO) 0.4 % (0.0-4.0); LYMPHOCYTES # (AUTO) 0.7 K/uL (1.0-5.5); LYMPHOCYTES % (AUTO) 4.9 % (20.5-51.5); MONOCYTES % (AUTO) 6.4 % (1.7-9.3); NEUTROPHILS % (AUTO) 88.1 % (40.0-70.0)
[2016-10-23 09:10] LABS: EOSINOPHILS # (AUTO) 0.1 K/uL (0.0-0.4); HEMATOCRIT 30.5 % (36-54); MEAN CORPUSCULAR HGB CONC 34 % (32-36); MEAN CORPUSCULAR VOLUME 93 fL (79.0-98.0); MONOCYTES # (AUTO) 0.9 K/uL (0.0-1.0); PLATELET COUNT (AUTO) 303 K/uL (130-430); RED CELL DISTRIBUTION WIDTH 16.3 % (9.0-15.0); WHITE BLOOD COUNT (AUTO) 13.7 K/uL (4.8-10.8)
[2016-10-23] MEDS: PARICALCITOL 1 MCG PO SCH (10:52)
[2016-10-23 11:34] VITALS: BP_SYST 126
[2016-10-23 11:54] LABS: ALANINE AMINOTRANSFERASE 240 U/L (12-78); ALBUMIN 1.9 g/dL (3.4-4.8); ANION GAP 3 (5-15); ASPARTATE AMINOTRANSFERASE 346 U/L (10-37); CALCIUM 7.8 mg/dL (8.4-11.0); CHLORIDE 97 mmol/L (98-107); CREATININE 1.53 mg/dL (0.55-1.30); GLUCOSE 123 mg/dL (70-99); POTASSIUM 3.4 mmol/L (3.5-5.1); SODIUM SERUM 133 mmol/L (136-145); TOTAL BILIRUBIN 7.8 mg/dL (0.0-1.0); TOTAL PROTEIN, SERUM 6.1 g/dL (6.4-8.3); UREA NITROGEN, BLOOD 15 mg/dL (8-21)
[2016-10-23] MEDS: 0.45% NACL 1,000 ML IV SCH (13:16)
[2016-10-23] MEDS ORDERED: PANTOPRAZOLE SODIUM 40 MG TAB PO ONE (13:45)
[2016-10-23 15:39] VITALS: BP_SYST 99
[2016-10-23] MEDS: SIMVASTATIN 10 MG TABLET PO SCH (17:11)
[2016-10-23 19:57] VITALS: BP_SYST 140
[2016-10-23] MEDS: ONDANSETRON HCL 4 MG/2 ML VIAL IVP SCH (20:30)
[2016-10-24 00:10] VITALS: BP_SYST 113
[2016-10-24] MEDS: PIPERACILLIN/TAZO 3.375/DEX-IS 50 ML IV SCH ×5 (00:25→23:05)
[2016-10-24] MEDS: ALBUTEROL SULFATE 0.083% 2.5 MG/3 ML VIAL.NEB INH SCH ×3 (00:32→20:02)
[2016-10-24] MEDS: IPRATROPIUM BROM 0.5 MG/2.5 ML VIAL.NEB (ATROVENT) INH SCH ×3 (00:32→20:02)
[2016-10-24 03:51] VITALS: BP_SYST 120
[2016-10-24] MEDS: INSULIN REGULAR, HUMAN 100 UNITS/ML, 10 ML VIAL (novoLIN R) SUBCUT PRN (06:06)
[2016-10-24 07:33] LABS: ALANINE AMINOTRANSFERASE 215 U/L (12-78); ALBUMIN 1.8 g/dL (3.4-4.8); ANION GAP 5 (5-15); ASPARTATE AMINOTRANSFERASE 306 U/L (10-37); CALCIUM 7.9 mg/dL (8.4-11.0); CHLORIDE 96 mmol/L (98-107); CREATININE 1.51 mg/dL (0.55-1.30); GLUCOSE 84 mg/dL (70-99); POTASSIUM 3.3 mmol/L (3.5-5.1); SODIUM SERUM 133 mmol/L (136-145); TOTAL BILIRUBIN 9.2 mg/dL (0.0-1.0); TOTAL PROTEIN, SERUM 5.8 g/dL (6.4-8.3); UREA NITROGEN, BLOOD 17 mg/dL (8-21)
[2016-10-24] MEDS ORDERED: COMMUNICATION ORDER XX ONE (08:00)
[2016-10-24] MEDS: PANTOPRAZOLE SODIUM 40 MG/VIAL (PROTONIX) IVP SCH (08:23)
[2016-10-24] MEDS: FUROSEMIDE 40 MG/4 ML VIAL IVP SCH ×2 (08:29→20:44)
[2016-10-24] MEDS: ONDANSETRON HCL 4 MG/2 ML VIAL IVP SCH ×2 (08:29→14:35)
[2016-10-24] MEDS: METOPROLOL TARTRATE 50 MG TABLET PO SCH ×2 (08:30→20:44)
[2016-10-24] MEDS: ASPIRIN 81 MG TABLET(ECOTRIN) PO SCH (08:30)
[2016-10-24] MEDS: REPAGLINIDE 1 MG TABLET (PRANDIN) PO SCH ×2 (08:30→20:46)
[2016-10-24] MEDS: LISINOPRIL 20 MG TABLET PO SCH (08:31)
[2016-10-24] MEDS: PARICALCITOL 1 MCG PO SCH (08:33)
[2016-10-24 09:49] LABS: HEMATOCRIT 29.9 % (36-54); HEMOGLOBIN 10.3 g/dL (14.0-18.0); MEAN CORPUSCULAR HEMOGLOBIN 32 pg (27-31); MEAN CORPUSCULAR HGB CONC 34 % (32-36); MEAN CORPUSCULAR VOLUME 92 fL (79.0-98.0); PLATELET COUNT (AUTO) 317 K/uL (130-430); RED BLOOD CELL COUNT(AUTO) 3.24 MIL/uL (4.2-6.2); RED CELL DISTRIBUTION WIDTH 16.2 % (9.0-15.0); WHITE BLOOD COUNT (AUTO) 13.1 K/uL (4.8-10.8)
[2016-10-24 09:56] LABS: ATYPICAL LYMPHOCYTES % 0 % (0-0); BAND % (MANUAL) 0 % (0-6); BASOPHILS % (MANUAL) 0 % (0-2); EOSINOPHILS % (MANUAL) 2 % (0-7); LYMPHOCYTES % (MANUAL) 6 % (20-46); MONOCYTES % (MANUAL) 5 % (0-11)
[2016-10-24 10:20] VITALS: BP_SYST 102
[2016-10-24 11:45] VITALS: BP_SYST 121
[2016-10-24] MEDS: 0.45% NACL 1,000 ML IV SCH (12:40)
[2016-10-24 15:48] VITALS: BP_SYST 126
[2016-10-24] MEDS: SIMVASTATIN 10 MG TABLET PO SCH (17:28)
[2016-10-24 20:00] VITALS: BP_SYST 121
[2016-10-25] VITALS (7 sets, daily range): BP systolic 107–124
[2016-10-25] MEDS: ALBUTEROL SULFATE 0.083% 2.5 MG/3 ML VIAL.NEB INH SCH ×4 (00:25→19:46)
[2016-10-25] MEDS: IPRATROPIUM BROM 0.5 MG/2.5 ML VIAL.NEB (ATROVENT) INH SCH ×4 (00:25→19:46)
[2016-10-25] MEDS: PIPERACILLIN/TAZO 3.375/DEX-IS 50 ML IV SCH ×4 (05:14→23:27)
[2016-10-25] MEDS: 0.45% NACL 1,000 ML IV SCH (05:14)
[2016-10-25] MEDS: D5/0.45 NS 1,000 ML IV SCH ×2 (07:00→23:28)
[2016-10-25] MEDS ORDERED: DEXTROSE 50% JECT 50 ML DISP.SYRIN IVP PRN ×2 (07:00)
[2016-10-25] MEDS ORDERED: DEXTROSE 50% JECT 50 ML DISP.SYRIN ONE (07:06)
[2016-10-25 08:02] LABS: ALANINE AMINOTRANSFERASE 211 U/L (12-78); ALBUMIN 1.9 g/dL (3.4-4.8); ANION GAP 5 (5-15); ASPARTATE AMINOTRANSFERASE 307 U/L (10-37); CALCIUM 8.1 mg/dL (8.4-11.0); CHLORIDE 95 mmol/L (98-107); CREATININE 1.76 mg/dL (0.55-1.30); GLUCOSE 179 mg/dL (70-99); SODIUM SERUM 133 mmol/L (136-145); TOTAL BILIRUBIN 10.8 mg/dL (0.0-1.0); TOTAL PROTEIN, SERUM 6.2 g/dL (6.4-8.3); UREA NITROGEN, BLOOD 20 mg/dL (8-21)
[2016-10-25 08:25] LABS: POTASSIUM 2.7 mmol/L (3.5-5.1)
[2016-10-25] MEDS ORDERED: POTASSIUM CHLORIDE 40 MEQ in NS 250 ML IV ONE (08:45)
[2016-10-25] MEDS: REPAGLINIDE 1 MG TABLET (PRANDIN) PO SCH ×2 (09:00→20:41)
[2016-10-25] MEDS: PANTOPRAZOLE SODIUM 40 MG/VIAL (PROTONIX) IVP SCH (09:26)
[2016-10-25] MEDS: ONDANSETRON HCL 4 MG/2 ML VIAL IVP SCH ×2 (09:26→20:43)
[2016-10-25] MEDS: ASPIRIN 81 MG TABLET(ECOTRIN) PO SCH (09:27)
[2016-10-25] MEDS: METOPROLOL TARTRATE 50 MG TABLET PO SCH ×2 (09:27→20:43)
[2016-10-25] MEDS: PARICALCITOL 1 MCG PO SCH (09:33)
[2016-10-25] MEDS: SIMVASTATIN 10 MG TABLET PO SCH (17:28)
[2016-10-26] VITALS: BP_SYST 114
[2016-10-26] MEDS: IPRATROPIUM BROM 0.5 MG/2.5 ML VIAL.NEB (ATROVENT) INH SCH ×4 (01:22→19:54)
[2016-10-26] MEDS: ALBUTEROL SULFATE 0.083% 2.5 MG/3 ML VIAL.NEB INH SCH ×4 (01:23→19:53)
[2016-10-26 04:49] VITALS: BP_SYST 120
[2016-10-26] MEDS: PIPERACILLIN/TAZO 3.375/DEX-IS 50 ML IV SCH ×3 (05:32→17:49)
[2016-10-26 08:00] VITALS: BP_SYST 125
[2016-10-26 10:01] LABS: WHITE BLOOD COUNT (AUTO) 14.3 K/uL (4.8-10.8)
[2016-10-26 10:02] LABS: BASOPHILS # (AUTO) 0.4 K/uL (0.0-0.2); BASOPHILS % (AUTO) 0.4 % (0.0-2.0); EOSINOPHILS % (AUTO) 0.2 % (0.0-4.0); HEMATOCRIT 31.2 % (36-54); HEMOGLOBIN 10.8 g/dL (14.0-18.0); LYMPHOCYTES # (AUTO) 0.3 K/uL (1.0-5.5); LYMPHOCYTES % (AUTO) 2.3 % (20.5-51.5); MEAN CORPUSCULAR HEMOGLOBIN 32 pg (27-31); MEAN CORPUSCULAR HGB CONC 35 % (32-36); MEAN CORPUSCULAR VOLUME 91 fL (79.0-98.0); MONOCYTES # (AUTO) 0.8 K/uL (0.0-1.0); MONOCYTES % (AUTO) 5.4 % (1.7-9.3); NEUTROPHILS # (AUTO) 12.8 K/uL (1.8-7.7); NEUTROPHILS % (AUTO) 89.5 % (40.0-70.0); PLATELET COUNT (AUTO) 365 K/uL (130-430); RED BLOOD CELL COUNT(AUTO) 3.41 MIL/uL (4.2-6.2); RED CELL DISTRIBUTION WIDTH 15.7 % (9.0-15.0)
[2016-10-26] MEDS: PANTOPRAZOLE SODIUM 40 MG/VIAL (PROTONIX) IVP SCH (10:32)
[2016-10-26] MEDS: ONDANSETRON HCL 4 MG/2 ML VIAL IVP SCH ×2 (10:32→21:56)
[2016-10-26] MEDS: REPAGLINIDE 1 MG TABLET (PRANDIN) PO SCH ×2 (10:32→22:00)
[2016-10-26] MEDS: ASPIRIN 81 MG TABLET(ECOTRIN) PO SCH (10:39)
[2016-10-26] MEDS: METOPROLOL TARTRATE 50 MG TABLET PO SCH ×2 (10:47→21:57)
[2016-10-26] MEDS ORDERED: POTASSIUM CHLORIDE 40 MEQ in NS 250 ML IV ONE (11:00)
[2016-10-26 12:03] VITALS: BP_SYST 121
[2016-10-26 12:46] LABS: ALANINE AMINOTRANSFERASE 244 U/L (12-78); ANION GAP 5 (5-15); ASPARTATE AMINOTRANSFERASE 368 U/L (10-37); CALCIUM 8.2 mg/dL (8.4-11.0); CHLORIDE 93 mmol/L (98-107); CREATININE 2.26 mg/dL (0.55-1.30); GLUCOSE 180 mg/dL (70-99); SODIUM SERUM 129 mmol/L (136-145); TOTAL BILIRUBIN 11.3 mg/dL (0.0-1.0); TOTAL PROTEIN, SERUM 6.1 g/dL (6.4-8.3); UREA NITROGEN, BLOOD 25 mg/dL (8-21)
[2016-10-26 12:47] LABS: ALBUMIN 1.8 g/dL (3.4-4.8)
[2016-10-26 16:26] VITALS: BP_SYST 117
[2016-10-26] MEDS: D5NS 1,000 ML IV SCH (17:43)
[2016-10-26] MEDS: SIMVASTATIN 10 MG TABLET PO SCH (18:07)
[2016-10-26 20:00] VITALS: BP_SYST 111
[2016-10-27] MEDS: PIPERACILLIN/TAZO 3.375/DEX-IS 50 ML IV SCH ×4 (00:24→18:43)
[2016-10-27 00:36] VITALS: BP_SYST 114
[2016-10-27] MEDS: IPRATROPIUM BROM 0.5 MG/2.5 ML VIAL.NEB (ATROVENT) INH SCH ×4 (01:00→20:37)
[2016-10-27] MEDS: ALBUTEROL SULFATE 0.083% 2.5 MG/3 ML VIAL.NEB INH SCH ×4 (01:00→20:37)
[2016-10-27 04:00] VITALS: BP_SYST 122
[2016-10-27] MEDS: D5NS 1,000 ML IV SCH ×2 (06:23→18:49)
[2016-10-27 06:54] LABS: HEMATOCRIT 28.8 % (36-54); HEMOGLOBIN 9.9 g/dL (14.0-18.0); MEAN CORPUSCULAR HEMOGLOBIN 32 pg (27-31); MEAN CORPUSCULAR HGB CONC 34 % (32-36); MEAN CORPUSCULAR VOLUME 92 fL (79.0-98.0); PLATELET COUNT (AUTO) 377 K/uL (130-430); RED BLOOD CELL COUNT(AUTO) 3.14 MIL/uL (4.2-6.2); WHITE BLOOD COUNT (AUTO) 12.9 K/uL (4.8-10.8)
[2016-10-27 07:21] LABS: ALANINE AMINOTRANSFERASE 225 U/L (12-78); ALBUMIN 1.6 g/dL (3.4-4.8); CALCIUM 7.9 mg/dL (8.4-11.0); CHLORIDE 101 mmol/L (98-107); TOTAL BILIRUBIN 10.8 mg/dL (0.0-1.0); TOTAL PROTEIN, SERUM 5.7 g/dL (6.4-8.3); UREA NITROGEN, BLOOD 28 mg/dL (8-21)
[2016-10-27 07:49] LABS: ANION GAP 4 (5-15); ASPARTATE AMINOTRANSFERASE 315 U/L (10-37); CREATININE 2.61 mg/dL (0.55-1.30); GLUCOSE 181 mg/dL (70-99); POTASSIUM 3.4 mmol/L (3.5-5.1); SODIUM SERUM 135 mmol/L (136-145)
[2016-10-27 08:00] VITALS: BP_SYST 137
[2016-10-27] MEDS: PANTOPRAZOLE SODIUM 40 MG/VIAL (PROTONIX) IVP SCH (10:20)
[2016-10-27] MEDS: PARICALCITOL 1 MCG PO SCH (10:20)
[2016-10-27] MEDS: ONDANSETRON HCL 4 MG/2 ML VIAL IVP SCH ×2 (10:21→20:56)
[2016-10-27] MEDS: ASPIRIN 81 MG TABLET(ECOTRIN) PO SCH (10:22)
[2016-10-27] MEDS: REPAGLINIDE 1 MG TABLET (PRANDIN) PO SCH ×2 (10:22→20:49)
[2016-10-27] MEDS: METOPROLOL TARTRATE 50 MG TABLET PO SCH ×2 (10:22→20:49)
[2016-10-27 12:25] LABS: ATYPICAL LYMPHOCYTES % 2 % (0-0); BAND % (MANUAL) 15 % (0-6); EOSINOPHILS % (MANUAL) 1 % (0-7); LYMPHOCYTES % (MANUAL) 4 % (20-46); MONOCYTES % (MANUAL) 3 % (0-11)
[2016-10-27 12:26] LABS: BASOPHILS % (MANUAL) 0 % (0-2)
[2016-10-27 13:45] VITALS: BP_SYST 135
[2016-10-27 18:36] VITALS: BP_SYST 142
[2016-10-27] MEDS: SIMVASTATIN 10 MG TABLET PO SCH (18:44)
[2016-10-27 20:15] VITALS: BP_SYST 134
[2016-10-28] VITALS (7 sets, daily range): BP systolic 117–147
[2016-10-28] MEDS: PIPERACILLIN/TAZO 3.375/DEX-IS 50 ML IV SCH ×2 (00:25→05:32)
[2016-10-28] MEDS: IPRATROPIUM BROM 0.5 MG/2.5 ML VIAL.NEB (ATROVENT) INH SCH ×4 (02:32→20:06)
[2016-10-28] MEDS: ALBUTEROL SULFATE 0.083% 2.5 MG/3 ML VIAL.NEB INH SCH ×4 (02:32→20:05)
[2016-10-28] MEDS: D5NS 1,000 ML IV SCH ×2 (05:34→14:35)
[2016-10-28 07:23] LABS: ALANINE AMINOTRANSFERASE 219 U/L (12-78); ALBUMIN 1.6 g/dL (3.4-4.8); ANION GAP 7 (5-15); ASPARTATE AMINOTRANSFERASE 312 U/L (10-37); CALCIUM 7.8 mg/dL (8.4-11.0); CHLORIDE 104 mmol/L (98-107); GLUCOSE 180 mg/dL (70-99); POTASSIUM 3.2 mmol/L (3.5-5.1); SODIUM SERUM 138 mmol/L (136-145); TOTAL BILIRUBIN 11.1 mg/dL (0.0-1.0); TOTAL PROTEIN, SERUM 5.6 g/dL (6.4-8.3); UREA NITROGEN, BLOOD 30 mg/dL (8-21)
[2016-10-28] MEDS: REPAGLINIDE 1 MG TABLET (PRANDIN) PO SCH ×2 (10:17→21:55)
[2016-10-28] MEDS: PANTOPRAZOLE SODIUM 40 MG/VIAL (PROTONIX) IVP SCH (10:17)
[2016-10-28] MEDS: ASPIRIN 81 MG TABLET(ECOTRIN) PO SCH (10:18)
[2016-10-28] MEDS: METOPROLOL TARTRATE 50 MG TABLET PO SCH ×2 (10:19→22:00)
[2016-10-28] MEDS: ONDANSETRON HCL 4 MG/2 ML VIAL IVP SCH ×2 (10:20→22:00)
[2016-10-29] MEDS: ALBUTEROL SULFATE 0.083% 2.5 MG/3 ML VIAL.NEB INH SCH ×4 (00:17→20:05)
[2016-10-29] MEDS: IPRATROPIUM BROM 0.5 MG/2.5 ML VIAL.NEB (ATROVENT) INH SCH ×4 (00:17→20:05)
[2016-10-29 00:52] VITALS: BP_SYST 131
[2016-10-29 04:08] VITALS: BP_SYST 136
[2016-10-29] MEDS: D5NS 1,000 ML IV SCH ×2 (05:39→16:58)
[2016-10-29 06:56] LABS: ALANINE AMINOTRANSFERASE 209 U/L (12-78); ALBUMIN 1.6 g/dL (3.4-4.8); ANION GAP 8 (5-15); ASPARTATE AMINOTRANSFERASE 289 U/L (10-37); CHLORIDE 107 mmol/L (98-107); CREATININE 3.33 mg/dL (0.55-1.30); GLUCOSE 134 mg/dL (70-99); SODIUM SERUM 141 mmol/L (136-145); TOTAL BILIRUBIN 11.9 mg/dL (0.0-1.0); TOTAL PROTEIN, SERUM 5.6 g/dL (6.4-8.3); UREA NITROGEN, BLOOD 33 mg/dL (8-21)
[2016-10-29 07:08] LABS: POTASSIUM 2.9 mmol/L (3.5-5.1)
[2016-10-29 08:00] VITALS: BP_SYST 140
[2016-10-29] MEDS: PARICALCITOL 1 MCG PO SCH (09:00)
[2016-10-29] MEDS ORDERED: POTASSIUM CHLORIDE 20 MEQ TAB.PRT.SR PO ONE (09:45)
[2016-10-29] MEDS ORDERED: POTASSIUM CHLORIDE 30 MEQ in NS 250 ML IV ONE (09:45)
[2016-10-29] MEDS: PANTOPRAZOLE SODIUM 40 MG/VIAL (PROTONIX) IVP SCH (10:29)
[2016-10-29] MEDS: ONDANSETRON HCL 4 MG/2 ML VIAL IVP SCH ×2 (10:29→20:57)
[2016-10-29] MEDS: REPAGLINIDE 1 MG TABLET (PRANDIN) PO SCH ×2 (10:30→20:58)
[2016-10-29] MEDS: ASPIRIN 81 MG TABLET(ECOTRIN) PO SCH (10:30)
[2016-10-29] MEDS: METOPROLOL TARTRATE 50 MG TABLET PO SCH ×2 (10:30→20:58)
[2016-10-29] MEDS ORDERED: IPRATROPIUM BROM 0.5 MG/2.5 ML VIAL.NEB (ATROVENT) INH PRN (11:15)
[2016-10-29 12:18] VITALS: BP_SYST 145
[2016-10-29 16:09] VITALS: BP_SYST 139
[2016-10-29] MEDS: PIPERACILLIN/TAZO 2.25G/DEX-IS 50 ML IV SCH ×2 (18:00→20:59)
[2016-10-29 20:00] VITALS: BP_SYST 135
[2016-10-29] MEDS ORDERED: PIPERACILLIN/TAZOBACTAM 2.25 GM VIAL IV ONE (20:29)
[2016-10-30 00:14] VITALS: BP_SYST 125
[2016-10-30] MEDS: ALBUTEROL SULFATE 0.083% 2.5 MG/3 ML VIAL.NEB INH SCH ×3 (01:00→13:01)
[2016-10-30] MEDS: IPRATROPIUM BROM 0.5 MG/2.5 ML VIAL.NEB (ATROVENT) INH SCH ×3 (01:00→13:01)
[2016-10-30 04:34] VITALS: BP_SYST 148
[2016-10-30] MEDS: D5NS 1,000 ML IV SCH (05:13)
[2016-10-30] MEDS: PIPERACILLIN/TAZO 2.25G/DEX-IS 50 ML IV SCH ×2 (05:14→13:12)
[2016-10-30 06:24] LABS: HEMATOCRIT 29.1 % (36-54); HEMOGLOBIN 9.8 g/dL (14.0-18.0); MEAN CORPUSCULAR HEMOGLOBIN 31 pg (27-31); MEAN CORPUSCULAR HGB CONC 34 % (32-36); MEAN CORPUSCULAR VOLUME 92 fL (79.0-98.0); PLATELET COUNT (AUTO) 446 K/uL (130-430); RED BLOOD CELL COUNT(AUTO) 3.16 MIL/uL (4.2-6.2); RED CELL DISTRIBUTION WIDTH 16.6 % (9.0-15.0); WHITE BLOOD COUNT (AUTO) 17.3 K/uL (4.8-10.8)
[2016-10-30 07:04] LABS: ALANINE AMINOTRANSFERASE 194 U/L (12-78); ALBUMIN 1.6 g/dL (3.4-4.8); ANION GAP 6 (5-15); ASPARTATE AMINOTRANSFERASE 241 U/L (10-37); CALCIUM 8.1 mg/dL (8.4-11.0); CHLORIDE 112 mmol/L (98-107); GLUCOSE 148 mg/dL (70-99); POTASSIUM 3.3 mmol/L (3.5-5.1); SODIUM SERUM 144 mmol/L (136-145); TOTAL BILIRUBIN 12.1 mg/dL (0.0-1.0); TOTAL PROTEIN, SERUM 5.9 g/dL (6.4-8.3); UREA NITROGEN, BLOOD 34 mg/dL (8-21)
[2016-10-30 07:38] LABS: BAND % (MANUAL) 10 % (0-6); BASOPHILS % (MANUAL) 0 % (0-2); EOSINOPHILS % (MANUAL) 0 % (0-7); LYMPHOCYTES % (MANUAL) 4 % (20-46); MONOCYTES % (MANUAL) 4 % (0-11)
[2016-10-30 08:00] VITALS: BP_SYST 152
[2016-10-30] MEDS: ONDANSETRON HCL 4 MG/2 ML VIAL IVP SCH (09:45)
[2016-10-30] MEDS: REPAGLINIDE 1 MG TABLET (PRANDIN) PO SCH (09:45)
[2016-10-30] MEDS: PANTOPRAZOLE SODIUM 40 MG/VIAL (PROTONIX) IVP SCH (09:45)
[2016-10-30] MEDS: ASPIRIN 81 MG TABLET(ECOTRIN) PO SCH (09:46)
[2016-10-30] MEDS: METOPROLOL TARTRATE 50 MG TABLET PO SCH (09:46)
[2016-10-30 12:39] VITALS: BP_SYST 147
[2016-10-30] MEDS ORDERED: FUROSEMIDE 40 MG/4 ML VIAL IVP ONE (13:00)
[2016-10-30 15:19] VITALS: BP_SYST 152
[2016-10-30] MEDS ORDERED: ONDA4TAB5 IVP (15:32)
[2016-10-30] MEDS ORDERED: PANT40TA4 IVP (15:33)
[2016-10-30] MEDS ORDERED: IPRA0.2S53 IH (15:36)
[2016-10-30] MEDS ORDERED: ALBU2.5V7 INH (15:37)
[2016-10-30] MEDS ORDERED: ZOSPM2 IV (15:40)
[2016-10-30] MEDS ORDERED: INSU100V32 SUBCUT (15:42)
[2016-10-30 16:24] VITALS: BP_SYST 138
[2016-10-30] MEDS ORDERED: ONDANSETRON HCL 4 MG/2 ML VIAL IVP SCH (18:00)
== END 2016-10-30 16:20 | DRG 177 ==
LOC: SED 22:24 → SMU 10-19 01:53 → STU 10-19 07:16 → SMU 10-24 11:24
PROVIDERS: ADMIT Internal Medicine Nephrology; ATTEND Internal Medicine Nephrology
DX: J69.0 Pneumonitis due to inhalation of food and vomit (principal); K85.90 Acute pancreatitis without necrosis or infection, unspecified; C16.9 Malignant neoplasm of stomach, unspecified; C78.00 Secondary malignant neoplasm of unspecified lung; I13.0 Hypertensive heart and chronic kidney disease with heart failure and stage 1 through stage 4 chronic kidney disease, or unspecified chronic kidney disease; N17.9 Acute kidney failure, unspecified; E87.1 Hypo-osmolality and hyponatremia; J90 Pleural effusion, not elsewhere classified; I24.9 Acute ischemic heart disease, unspecified; E11.22 Type 2 diabetes mellitus with diabetic chronic kidney disease; I25.10 Atherosclerotic heart disease of native coronary artery without angina pectoris; I50.9 Heart failure, unspecified; N18.3 Chronic kidney disease, stage 3 (moderate); E78.5 Hyperlipidemia, unspecified; D63.8 Anemia in other chronic diseases classified elsewhere; E87.6 Hypokalemia; F03.90 Unspecified dementia, unspecified severity, without behavioral disturbance, psychotic disturbance, mood disturbance, and anxiety; Z95.0 Presence of cardiac pacemaker; Z79.82 Long term (current) use of aspirin; Z79.899 Other long term (current) drug therapy; Z98.49 Cataract extraction status, unspecified eye
CPT/HCPCS: 36415; 36600; 71010; 74230; 80048; 80053; 81000-TC; 82150-TC; 82550-TC; 82803-TC; 82962; 83735-TC; 83880; 84100-TC; 84302-TC; 84484; 85007; 85025; 85027; 85610-TC; 85730-TC; 87081; 92610-GN; 92611-GN; 93005; 93306; 94640; 94760; 96361; 96365; 99285; C9113; J0456; J0696; J1815; J1940; J2405; J2543; J3480; J7030; J7042; J7050; J7060